=== PATIENT | male | born 1985 | race African-American/Black ===

== ENCOUNTER 2025-04-14 02:10 | Emergency (ER) | payer OTHER, MEDICAID ==
[2025-04-14] MEDS ORDERED: Ondansetron PF 4 MG/2 ML Vial ONE (02:26)
[2025-04-14] MEDS ORDERED: Pantoprazole 40 MG VIAL ONE (02:54)
[2025-04-14 03:01] LABS: #Basophils 0.0 thou/uL (0.0-0.2); #Eosinophils 0.1 thou/uL (0.0-0.7); #Lymphocytes 1.9 thou/uL (1.20-3.40); #Monocytes 0.4 thou/uL (0.11-0.59); #Neutrophils 4.2 thou/uL (1.40-6.50); %Basophils 0.5 % (0.0-1.0); %Eosinophils 1.3 % (0.0-10.0); %Lymphocytes 29.1 % (21.0-51.0); %Monocytes 6.4 % (0.0-10.0); %Neutrophils 62.8 % (42.0-75.0); Hematocrit 38.4 % (42.0-52.0); Hemoglobin 13.9 g/dL (14.0-18.0); Mean Corpuscular Hemoglobin 29.8 pg (27.0-31.0); Mean Corpuscular Volume 82.3 fl (78.0-98.0); Platelet Count 237 10x3/uL (130-400); Red Blood Cell (RBC) Count 4.67 mill/uL (4.70-6.10); White Blood Cell (WBC) Count 6.7 10x3/uL (4.8-10.8)
[2025-04-14 03:02] LABS: ALT (SGPT) 13 U/L (Less than 45); AST (SGOT) 19 U/L (11-34); Albumin 4.1 g/dL (3.1-4.5); Alkaline Phosphatase 83 U/L (40-110); Anion Gap 15 mmol/L (10-20); BUN (Urea Nitrogen) 15 mg/dL (8.9-20.6); Bilirubin, Total 0.6 mg/dL (0.3-1.2); Calc. Creatinine Clearance 0 mL/min (70-130); Calcium 9.1 mg/dL (7.8-10.44); Carbon Dioxide 30 mmol/L (22-29); Chloride 95 mmol/L (98-107); Globulin 3.3 g/dL (2.4-3.5); Lipase 199 U/L (8-78); Potassium 4.1 mmol/L (3.5-5.1); Sodium 136 mmol/L (136-145); Troponin I Less than 0.010 ng/mL (< 0.028)
[2025-04-14 03:04] LABS: Glucose 425 mg/dL (70-105)
[2025-04-14 03:07] LABS: Bicarbonate (HCO3v) 33.0 mmol/L (22.0-28.0); CO2 Tension (PvCO2) 62.3 mmHg (42.0-51.0); Calcium, Ionized 1.23 mmol/L (1.15-1.33); Chloride 97 mmol/L (98-107); Hemoglobin - Calc 13.7 g/dL (14.0-18.0); Potassium 3.8 mmol/L (3.5-5.1); Sodium 139 mmol/L (138-145); T. Carbon Dioxide 34.9 mmol/L (22.0-28.0); vO2 Saturation-calc 57.1 % (60.0-85.0)
[2025-04-14] MEDS ORDERED: Lantus 1000 UNITS/10 ML VIAL ONE (03:27)
== END 2025-04-14 07:50 | disposition home or self-care (01) ==
LOC: NAV ERS 02:10
DX: K29.00 Acute gastritis without bleeding (principal); E11.65 Type 2 diabetes mellitus with hyperglycemia; F17.210 Nicotine dependence, cigarettes, uncomplicated; Z79.4 Long term (current) use of insulin
CPT/HCPCS: 80053; 82330; 82435; 82803; 82962; 83690; 84132; 84295; 84484; 85014; 85025; 93005; J1815; J2405; J2470; J7030; 36416; 96361; 96374; 96375